=== PATIENT | male | born 1945 | race Caucasian/White ===

== ENCOUNTER 2022-02-10 10:07 | Observation (INO) ==
--- NOTE | 2022-01-15 12:19 | PAT Medication Instructions ---
Medication Instructions Date of Service January 15, 2022 Home Medications Medication Instructions Recorded Wheeled Walker #1 ea 02/26/20 Wheeled Walker #1 ea 02/26/20 Wheeled Walker #1 ea 05/21/21 tolterodine 2 mg tablet 2 mg PO BID #180 tab 08/12/21 citalopram 20 mg tablet (Celexa) 20 mg PO QAM finasteride 5 mg tablet 5 mg PO QPM levothyroxine 25 mcg capsule 25 mcg PO HS rosuvastatin 40 mg tablet (Crestor) 40 mg PO QAM ascorbic acid (vitamin C) 1,000 mg tablet (Vitamin C) 1 g PO QPM calcium citrate 250 mg calcium-vitamin D3 5 mcg (200 unit) tablet (Citracal Regular) 1 tab PO QPM cholecalciferol (vitamin D3) 50 mcg (2,000 unit) tablet (Vitamin D3) 50 mcg PO QAM diclofenac sodium 1 % topical gel 2 gm TOP QID PRN fish, borage, flaxseed oils-omega 3,6,9 comb no.1 1,200 mg capsule ([place] 3-6-9) 1 cap PO QPM ginkgo biloba 120 mg tablet 120 mg PO QAM glucosamine-chondroitin 250 mg-200 mg tablet (Osteo Bi-Flex) 1 tab PO BID loratadine 10 mg tablet (Claritin) 10 mg PO Q OTHER DAY loratadine 5 mg-pseudoephedrine ER 120 mg tablet,extended release,12hr (Claritin-D 12 Hour) 1 tab PO Q OTHER DAY multivitamin 1 tab PO QAM omeprazole 20 mg capsule,delayed release 20 mg PO QAM tolterodine 2 mg tablet 2 mg PO BID Al hyd-Mg tr-alg ac-sod bicarb 80 mg-14.2 mg chewable tablet (Gaviscon) 1 tab PO UD PRN tqtyjla-eycresnrfgohs-mbjbjmch 250 mg-250 mg-65 mg tablet (Excedrin Migraine) 1 tab PO Q6H PRN donepezil 5 mg tablet 5 mg PO QPM famotidine-Ca carb-mag hydrox 10 mg-800 mg-165 mg chewable tablet (Pepcid Complete) 1 tab PO DAILY PRN guaifenesin 100 mg/5 mL oral liquid 200 mg PO Q4H PRN ibuprofen 200 mg tablet 200 mg PO Q6H PRN lisinopril 10 mg tablet 10 mg PO QAM naproxen 500 mg tablet 500 mg PO DAILY PRN ASK your surgeon for instructions ibuprofen 200 mg tablet 200 mg PO Q6H PRN naproxen 500 mg tablet 500 mg PO DAILY PRN tdorudv-feqmmfqmlrlmi-sjmxscvo 250 mg-250 mg-65 mg tablet (Excedrin Migraine) 1 tab PO Q6H PRN STOP taking 2 weeks before surgery (or as soon as possible if surgery is within 2 weeks) fish, borage, flaxseed oils-omega 3,6,9 comb no.1 1,200 mg capsule ([place] 3-6-9) 1 cap PO QPM ginkgo biloba 120 mg tablet 120 mg PO QAM glucosamine-chondroitin 250 mg-200 mg tablet (Osteo Bi-Flex) 1 tab PO BID STOP taking 24 hours before surgery diclofenac sodium 1 % topical gel 2 gm TOP QID PRN DO NOT take the morning of surgery cholecalciferol (vitamin D3) 50 mcg (2,000 unit) tablet (Vitamin D3) 50 mcg PO QAM loratadine 10 mg tablet (Claritin) 10 mg PO Q OTHER DAY loratadine 5 mg-pseudoephedrine ER 120 mg tablet,extended release,12hr (Claritin-D 12 Hour) 1 tab PO Q OTHER DAY multivitamin 1 tab PO QAM tolterodine 2 mg tablet 2 mg PO BID Al hyd-Mg tr-alg ac-sod bicarb 80 mg-14.2 mg chewable tablet (Gaviscon) 1 tab PO UD PRN famotidine-Ca carb-mag hydrox 10 mg-800 mg-165 mg chewable tablet (Pepcid Complete) 1 tab PO DAILY PRN guaifenesin 100 mg/5 mL oral liquid 200 mg PO Q4H PRN lisinopril 10 mg tablet 10 mg PO QAM Take morning of surgery With a small sip of water, OTHERWISE NOTHING TO EAT OR DRINK AFTER MIDNIGHT: citalopram 20 mg tablet (Celexa) 20 mg PO QAM rosuvastatin 40 mg tablet (Crestor) 40 mg PO QAM omeprazole 20 mg capsule,delayed release 20 mg PO QAM Take evening before surgery finasteride 5 mg tablet 5 mg PO QPM levothyroxine 25 mcg capsule 25 mcg PO HS ascorbic acid (vitamin C) 1,000 mg tablet (Vitamin C) 1 g PO QPM calcium citrate 250 mg calcium-vitamin D3 5 mcg (200 unit) tablet (Citracal Regular) 1 tab PO QPM tolterodine 2 mg tablet 2 mg PO BID Al hyd-Mg tr-alg ac-sod bicarb 80 mg-14.2 mg chewable tablet (Gaviscon) 1 tab PO UD PRN (if needed) donepezil 5 mg tablet 5 mg PO QPM famotidine-Ca carb-mag hydrox 10 mg-800 mg-165 mg chewable tablet (Pepcid Complete) 1 tab PO DAILY PRN (if needed) guaifenesin 100 mg/5 mL oral liquid 200 mg PO Q4H PRN (if needed) Other Notes If you have any questions please call us at [phone] or [phone] or [phone] or [phone]
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
[~2022-02-10 10:07] MED LIST: ACETAMINOPHEN 500 MG TAB PO SCH; BUPIVACAINE 0.5 % 5 MG/1 ML PF 10ML VIAL ONE; BUPIVACAINE LIPOSOME/PF 266 MG, BUPIVACAINE/EPINEPHRINE 50 ML, SODIUM CHLORIDE 0.9% 30 ... INFIL SCH; CeleBREX 200 MG CAP PO SCH; FAMOTIDINE 20 MG TAB PO SCH; LR 500ML BOLUS, THEN 15ML/HR IV SCH; LR 60ML/HR IV SCH; METOCLOPRAMIDE HCL 10 MG TABLET PO SCH; ROPIVACAINE 0.5% 5 MG/ML 30 ML VIAL ONE; TRANEXAMIC ACID 1,000 MG **IV Intra-op IV SCH; ceFAZolin 2000MG 2,000 MG/15 ML SYR IV SCH
--- NOTE | 2022-02-10 10:51 | History & Physical Bridge Note ---
Date of Service February 10, 2022 History & Physical Bridge Note I have examined the patient, reviewed the History & Physical and in the interval since the performance of the History & Physical I have noted the following changes of clinical significance: no changes noted
[2022-02-10] MEDS ORDERED: MIDAZOLAM HCL 1 MG/ML 2ML VIAL ONE (11:36)
[2022-02-10] MEDS ORDERED: ONDANSETRON INJ 2 MG/ML 2 ML VIAL ONE (11:36)
[2022-02-10] MEDS ORDERED: PROPOFOL IV EMULSION 10 MG/ML 20 ML VIAL IV ONE (11:36)
[2022-02-10] MEDS ORDERED: LIDOCAINE 2% 2 ML VIAL/AMP(20MG/ML) INFIL ONE (11:36)
[2022-02-10] MEDS ORDERED: BUPIVACAINE/EPINEPHRINE 0.25% 1:200,000 30 ML VIAL ONE (12:59)
[2022-02-10] MEDS ORDERED: SODIUM CHLORIDE 0.9% PF 50 ML VIAL ONE (12:59)
[2022-02-10] MEDS ORDERED: VANCOMYCIN HCL 1000MG/20ML VIAL ONE (13:00)
[2022-02-10] MEDS ORDERED: BUPIVACAINE LIPOSOME 1.3% 266 MG/20 ML VIAL ONE (13:00)
--- NOTE | 2022-02-10 15:36 | Post Operative Brief Note ---
PG Immediate Post Op with CF Date of Surgery February 10, 2022 Pre & Post Diagnosis Operation Date: 02/10/22 12:30 Pre-Op Diagnosis: Right Knee Advanced Degenerative Joint Disease Post-Op Diagnosis: Right Knee Advanced Degenerative Joint Disease I identified the patient and participated in the time-out.: Yes Procedure Operation Date: 02/10/22 12:30 Actual Procedures p Right Total Knee Arthroplasty(Right) - Artemio Alcantar MD Surgeon Artemio Alcantar MD Local Superintendent Francisco Sal PA-C Estimated Blood Loss 50 Findings Consistent with Post-Op Diagnosis Specimens Specimen Description: A. Right Knee Bone and Tissue Drains Javier Catheter
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
--- NOTE | 2022-02-10 16:44 | XRay Report ---
XR knee RT 1 or 2V routine CLINICAL HISTORY: Surgical Post Op TECHNIQUE: 2 views of the right knee were obtained. Comparison: None available at the time of this dictation. FINDINGS: Patient is status post total knee arthroplasty with expected postsurgical changes including soft tiss ue swelling, subcutaneous emphysema, and surgical staple placement. No periarticular lucency or hardw are fracture is seen. IMPRESSION: Expected postoperative appearance status post total knee arthroplasty. ACT 112: Negative or not required by law. Electronically signed by: Saji Harkins M.D. 02/10/2022 4:42 PM
--- NOTE | 2022-02-10 17:15 | Anesthesiology Progress Note ---
Date of Service February 10, 2022 Anesthesia Post Procedure Vital Signs Vital Signs: Temp Pulse Pulse Resp BP Pulse Ox 02/10/22 17:05 63 13 123/75 97 02/10/22 16:55 62 12 115/82 98 02/10/22 16:45 68 15 121/85 97 02/10/22 16:35 64 20 122/82 100 02/10/22 16:25 65 17 122/74 99 02/10/22 16:15 63 12 113/77 99 02/10/22 16:05 68 13 108/73 100 02/10/22 15:55 65 15 113/69 100 02/10/22 15:45 63 13 107/69 100 02/10/22 15:35 97.3 F L 72 18 116/73 95 02/10/22 10:57 98.2 F 79 20 129/88 97 Transfer of Care Handoff Completed per policy Notes Mental Status: alert / awake / arousable and participated in evaluation Patient Amnestic to Procedure: Yes Nausea / Vomiting: adequately controlled Pain: adequately controlled Airway Patency, RR, SpO2: stable & adequate BP & HR: stable & adequate Hydration State: stable & adequate Neuraxial Anesthesia: was administered and sensory block is resolving Anesthetic Complications: no major complications apparent and Pt Satisfied with anesthetic care
[2022-02-10] MEDS ORDERED: METOCLOPRAMIDE HCL INJ 5 MG/ML 2 ML VIAL IV PRN (17:27)
[2022-02-10] MEDS ORDERED: NALOXONE HCL 0.4 MG/1 ML VIAL/CARP IV PRN (17:27)
[2022-02-10] MEDS ORDERED: TAMSULOSIN HCL 0.4 MG CAP PO PRN (17:27)
[2022-02-10] MEDS ORDERED: NON-FORMULARY MEDICATION (Amino Acids [Amino Acid] Capsule) PO SCH (17:27)
[2022-02-10] MEDS ORDERED: MAGNESIUM HYDROXIDE SUSP 30 ML UDC PO PRN (17:27)
[2022-02-10] MEDS ORDERED: guaiFENesin SUGAR FREE 100 MG/5 ML UDC PO PRN (17:27)
[2022-02-10] MEDS ORDERED: bisacodyL 10 MG SUPP PR PRN (17:27)
[2022-02-10] MEDS ORDERED: ALUMINUM/MAGNESIUM SUSP 30 ML UDC PO PRN (17:27)
[2022-02-10] MEDS ORDERED: HYDROmorphone INJ 0.5 MG/0.5 ML SYR IV PRN (17:27)
[2022-02-10] MEDS ORDERED: ONDANSETRON INJ 2 MG/ML 2 ML VIAL IV PRN (17:27)
[2022-02-10] MEDS ORDERED: FAMOTIDINE 20 MG TAB PO PRN (18:07)
[2022-02-10] MEDS: KETOROLAC TROMETHAMINE 15 MG/ML VIAL IV SCH ×2 (19:46→23:10)
[2022-02-10] MEDS: SODIUM CHLORIDE 0.9% 1000ML 1,000 ML IV SCH (19:46)
[2022-02-10] MEDS: ASCORBIC ACID 500 MG TAB PO SCH (20:24)
[2022-02-10] MEDS ORDERED: LEVOTHYROXINE SODIUM 25 MCG TABLET PO SCH (21:00)
[2022-02-10] MEDS ORDERED: SENNA 8.6 MG TAB PO SCH (21:00)
[2022-02-10] MEDS ORDERED: CALCIUM 600MG + VIT D 400 IU TAB PO SCH (21:00)
[2022-02-10] MEDS ORDERED: DONEPEZIL HCL 5 MG TAB PO SCH (21:00)
[2022-02-10] MEDS ORDERED: FINASTERIDE 5 MG TAB PO SCH (21:00)
[2022-02-10] MEDS ORDERED: LORATADINE 10 MG TAB PO SCH (21:00)
[2022-02-10] MEDS ORDERED: OMEGA-3 (PURIFIED FISH OIL) 1 GM CAP PO SCH (21:00)
[2022-02-10] MEDS ORDERED: NON-FORMULARY MEDICATION (Ascorbic Acid (Vitamin C) [Vitamin C] 1,000 mg Tablet) PO SCH (21:00)
[2022-02-10] MEDS: oxyCODONE HCL IR 5 MG TAB (IMMEDIATE RELEASE) PO PRN (21:02)
[2022-02-10] MEDS: ceFAZolin 1000MG 1,000 MG/7.5 ML SYR IV SCH (21:03)
[2022-02-10] MEDS: ASPIRIN 81 MG ECTAB PO SCH (21:03)
[2022-02-10] MEDS: ACETAMINOPHEN 500 MG TAB PO SCH (21:03)
[2022-02-10] MEDS: TOLTERODINE TARTRATE 2 MG TAB PO SCH (21:04)
[2022-02-10] MEDS: DOCUSATE SODIUM 100 MG CAP PO SCH (21:04)
[2022-02-10] MEDS ORDERED: TRANEXAMIC ACID / 0.7% NACL 1,000 MG/100 ML BAG IV SCH (21:30)
[2022-02-11] MEDS: SODIUM CHLORIDE 0.9% 1000ML 1,000 ML IV SCH (05:35)
[2022-02-11] MEDS: KETOROLAC TROMETHAMINE 15 MG/ML VIAL IV SCH ×2 (05:36→11:22)
[2022-02-11] MEDS: ceFAZolin 1000MG 1,000 MG/7.5 ML SYR IV SCH (05:36)
[2022-02-11] MEDS: ACETAMINOPHEN 500 MG TAB PO SCH ×2 (05:37→13:24)
[2022-02-11 06:57] LABS: Hematocrit (blood only) 33.5 % (42-52); Hemoglobin 11.4 g/dL (14.0-18.0); Mean Corpuscular Hemoglobin 30.3 pg (25-34); Mean Corpuscular Volume 89.1 fL (80-100); Mean Platelet Volume 9.2 fL (7.4-10.4); Platelet Count 148 K/uL (130-400); RDW Coefficient of Variation 12.3 % (11.5-14.5); RDW Standard Deviation 39.8 fL (36.4-46.3); Red Blood Count 3.76 M/uL (4.7-6.1); White Blood Count 7.07 K/uL (4.8-10.8)
[2022-02-11 07:13] LABS: BUN Creatinine Ratio 20.7 (10-20); Calcium 8.6 mg/dl (8.5-10.1); Est GFR (African American) 100.3 ml/min; Est GFR (Non-African American) 86.5 ml/min; Potassium 4.1 mmol/L (3.5-5.1)
[2022-02-11] MEDS ORDERED: dexAMETHasone 10 MG in SYRINGE 0 ML IV SCH (08:00)
[2022-02-11] MEDS ORDERED: NON-FORMULARY MEDICATION (Multivitamin Tablet) PO SCH (09:00)
[2022-02-11] MEDS ORDERED: lisinopril 10 MG TAB PO SCH (09:00)
[2022-02-11] MEDS ORDERED: CHOLECALCIFEROL 1,000 UNITS 25 MCG TAB PO SCH (09:00)
[2022-02-11] MEDS ORDERED: MULTIVITAMIN TAB PO SCH (09:00)
[2022-02-11] MEDS ORDERED: PANTOprazole 40 MG TAB PO SCH (09:00)
[2022-02-11] MEDS ORDERED: CITALOPRAM 20 MG TAB PO SCH (09:00)
[2022-02-11] MEDS ORDERED: ROSUVASTATIN CALCIUM 20 MG TAB PO SCH (09:00)
[2022-02-11] MEDS: TOLTERODINE TARTRATE 2 MG TAB PO SCH (09:41)
[2022-02-11] MEDS: ASCORBIC ACID 500 MG TAB PO SCH (09:41)
[2022-02-11] MEDS: DOCUSATE SODIUM 100 MG CAP PO SCH (09:42)
[2022-02-11] MEDS: ASPIRIN 81 MG ECTAB PO SCH (09:42)
[2022-02-11] MEDS: oxyCODONE HCL IR 5 MG TAB (IMMEDIATE RELEASE) PO PRN (09:44)
--- NOTE | 2022-02-11 15:04 | Progress Notes ---
DATE OF SERVICE: 02/11/2022. SUBJECTIVE: A 76-year-old gentleman postoperative day 1 from right knee replacement. He is doing pr graham well. His pain is controlled. He feels like he did go to therapy. Denies any chest pain or sh ortness of breath. Not feeling dizzy or lightheaded. OBJECTIVE: VITAL SIGNS: Temperature is 36.7. Vital signs are stable. GENERAL: Shows a pleasant, elderly male. He is sitting up on bed, looks pretty comfortable. LUNGS: Clear to auscultation. HEART: Regular rate and rhythm. ABDOMEN: Soft, nontender, nondistended. EXTREMITIES: Grossly neurovascularly intact except as follows. Examination of the right knee and leg reveals the dressing to be clean, dry and intact. He can dorsi flex and plantarflex his foot appropriately. He can do a good straight leg raise. LABORATORY: Hemoglobin 11.4. Hematocrit 33.5. Electrolytes are stable. ASSESSMENT: A 76-year-old gentleman postoperative day 1 from a right total knee replacement, doing p retty well. Pain is controlled. Medically appears stable. PLAN: 1. DVT prophylaxis include thigh-high TEDs, SCDs, and aspirin twice a day. 2. PT, OT, weightbear as tolerated. Right total knee protocol. 3. Pain control, doing okay with current pain regimen. 4. Disposition: He is planning to be discharged to home. He is going to do outpatient therapy at [facility]. Job ID: [id number]
[2022-02-11] MEDS ORDERED: LORATADINE 10 MG TAB PO SCH (21:00)
== END 2022-02-11 15:43 | disposition home health service (06) ==
LOC: ASU 10:07 → PACUINP 10:07 → 3E 19:46